=== PATIENT | male | born 1990 | race Caucasian/White ===

== ENCOUNTER 2016-12-02 00:43 | Emergency (ER) | payer SELFPAY ==
[2016-12-02 00:52] VITALS: BP 146/75; PULSE 87; TEMP 97.4; BMI 33.2
[2016-12-02] MEDS ORDERED: IBUPROFEN 400 MG TABLET (FP) PO ONE ×2 (01:28→01:48)
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
== END 2016-12-02 02:27 | disposition home or self-care (01) ==
LOC: JER 00:43
DX: S83.92XA Sprain of unspecified site of left knee, initial encounter (principal); W18.39XA Other fall on same level, initial encounter; Y93.89 Activity, other specified; Y92.410 Unspecified street and highway as the place of occurrence of the external cause
CPT/HCPCS: 73562-TC-LT; 99283-25

== ENCOUNTER 2017-10-27 22:26 | Emergency (ER) | payer SELFPAY ==
[2017-10-27 23:09] VITALS: BP 132/72; PULSE 61; TEMP 97.9; BMI 24.3
[2017-10-28] MEDS ORDERED: IBUPROFEN 400 MG TABLET (FP) PO ONE ×2 (01:13→02:17)
--- NOTE | 2017-10-28 01:21 | PDOC ---
History of Present Illness - General Chief Complaint: Pain Stated Complaint: PAIN Time Seen by Provider: 10/28/17 00:55 History Source: Patient Exam Limitations: No Limitations - History of Present Illness Initial Comments: 10/28/17 01:13 Patient is a 27M with no significant medical history here today complaining of pain in the lateral/inferior part of the left side of his chest. The pain started a week ago after he fell and hit h is chest with his elbow. Patient states that he slipped and fell on some ice. Denies LOC, headache, head trauma. The patient states that he's coming today because his pain has gotten worse. Denies fevers, chills, nausea, vomiting, abdominal pain, cough. His pain is worse with inspiration. He states that his pain is better with palpation. Denies family history of heart problems. Denies palpitations. Denies leg swelling, history of blood clots. Patient reports taking 1 aleve today for pain. Past History - Past Medical History Allergies/Adverse Reactions: Allergies Allergy/AdvReac Type Severity Reaction Status Date / Time No Known Allergies Allergy Verified 12/02/16 00:51 Home Medications: Ambulatory Orders NK [No Known Home Medication] 11/12/15 - Reproductive History Testicular Surgery: No Testicular Torsion: No - Immunization History Immunization Up to Date: Yes - Suicide/Smoking/Psychosocial Hx Smoking History: Never smoked Have you smoked in the past 12 months: No Information on smoking cessation initiated: No Hx Alcohol Use: No Drug/Substance Use Hx: No Substance Use Type: None Hx Substance Use Treatment: No Review of Systems - Review of Systems Comments:: 10/28/17 01:17 GENERAL/CONSTITUTIONAL: No fever or chills. No weakness. HEAD, EYES, EARS, NOSE AND THROAT: No change in vision. No sore throat. CARDIOVASCULAR: Positive for chest pain. Negative for shortness of breath RESPIRATORY: No cough, wheezing, or hemoptysis. GASTROINTESTINAL: No nausea, vomiting, diarrhea or constipation. MUSCULOSKELETAL: No joint or muscle swelling or pain. No neck or back pain. SKIN: No rash NEUROLOGIC: No headache, vertigo, loss of consciousness, or change in strength/ sensation. HEMATOLOGIC/LYMPHATIC: No anemia, easy bleeding, or history of blood clots. ALLERGIC/IMMUNOLOGIC: No hives or skin allergy. *Physical Exam - Vital Signs Last Vital Signs Temp Pulse Resp BP Pulse Ox 97.9 F 61 20 132/72 96 10/27/17 23:06 10/27/17 23:06 10/27/17 23:06 10/27/17 23:06 10/27/17 23:06 - Physical Exam Comments: 10/28/17 01:22 GENERAL: Awake, alert, and fully oriented, in no acute distress CHEST: No bruising or rash. Tender to palpation along rib 8/9. HEAD: No signs of trauma, normocephalic, atraumatic EYES: PERRLA, EOMI, sclera anicteric, conjunctiva clear ENT: Auricles normal inspection, hearing grossly normal, nares patent, oropharynx clear without exudates. Moist mucosa LUNGS: No distress, speaks full sentences, clear to auscultation bilaterally HEART: Regular rate and rhythm, normal S1 and S2, no murmurs, rubs or gallops, peripheral pulses normal and equal bilaterally. EXTREMITIES: Normal inspection, Normal range of motion, no edema. No clubbing or cyanosis. NEUROLOGICAL: Cranial nerves II through XII grossly intact. Normal speech, normal gait, no focal sensorimotor deficits SKIN: Warm, Dry, normal turgor, no rashes or lesions noted. Medical Decision Making - Medical Decision Making 10/28/17 01:23 27M here today with chest pain after minor trauma. Vital signs normal and stable. Do not believe pain has cardiac or pulmonary etiology. Pain is due to minor trauma. Breathing easily. Will give ibuprofen for pain control, give instructions to take ibuprofen and reassure patient. *DC/Admit/Observation/Transfer Diagnosis at time of Disposition: Bruised ribs - Discharge Dispostion Disposition: HOME Condition at time of disposition: Good Admit: No - Referrals - Patient Instructions Additional Instructions: Please return if you have any new, worsening or concerning symptoms. Please follow up your primary care physician this week. Please take ibuprofen or aleve as directed on the bottle and rest to relieve your pain. - Post Discharge Activity
--- NOTE | 2017-10-28 01:28 | PDOC ---
Attending Attestation - Resident Resident Name: Norman Pepper - ED Attending Attestation I have performed the following: I have examined & evaluated the patient, The case was reviewed & discussed with the resident, I agree w/resident's findings & plan, Exceptions are as noted - Physicial Exam PE: GENERAL: Awake, alert, and fully oriented, in no acute distress HEAD: No signs of trauma EYES: PERRLA, EOMI, sclera anicteric, conjunctiva clear ENT: Auricles normal inspection, hearing grossly normal, nares patent, oropharynx clear without exudates. Moist mucosa NECK: Normal ROM, supple, no lymphadenopathy, JVD, or masses LUNGS: Breath sounds equal, clear to auscultation bilaterally. No wheezes, and no crackles. +Tenderness to L anterior lower rib margin. No ecchymosis or overlying skin changes. HEART: Regular rate and rhythm, normal S1 and S2, no murmurs, rubs or gallops ABDOMEN: Soft, nontender, normoactive bowel sounds. No guarding, no rebound. No masses EXTREMITIES: Normal range of motion, no edema. No clubbing or cyanosis. No cords, erythema, or tenderness NEUROLOGICAL: Cranial nerves II through XII grossly intact. Normal speech, normal gait SKIN: Warm, Dry, normal turgor, no rashes or lesions noted. - Medical Decision Making Pt likely with bruised ribs s/p slip and fall. He is able to take a deep breath and has clear lung sounds, therefore ptx unlikely. Will career development counselor him to take NSAIDs for pain control to prevent pna. Stable for DC home. <Mera Wilson - Last Filed: 10/28/17 01:26> - HPI HPI: 10/28/17 01:44 Pt is a 27 yo M with no PMHx who presents to the ED with traumatic chest pain today. One week ago, patient fell and hit his elbow on his L lateral chest. Patient experienced chest pain today and took Ibuprofen with no relief. Patient states pain is exacerbated upon deep inspiration and reports to the ED for further evaluation. - Medical Decision Making 10/28/17 02:01 Documentation prepared by Renate Bennett, acting as medical center manager for Mera Wilson MD <Renate Bennett - Last Filed: 10/28/17 02:01>
== END 2017-10-28 02:22 | disposition home or self-care (01) ==
LOC: JER 22:26
DX: S20.212A Contusion of left front wall of thorax, initial encounter (principal); W00.2XXA Other fall from one level to another due to ice and snow, initial encounter; Y93.89 Activity, other specified; Y92.89 Other specified places as the place of occurrence of the external cause; Y99.8 Other external cause status
CPT/HCPCS: 99281-25

== ENCOUNTER 2017-12-02 12:56 | Emergency (ER) | payer SELFPAY ==
[2017-12-02 13:12] VITALS: BP 146/72; PULSE 64; TEMP 98.1; BMI 31.5
--- NOTE | 2017-12-02 13:42 | PDOC ---
History of Present Illness - General Chief Complaint: Abscess Boil Stated Complaint: ABSCESS BOIL Time Seen by Provider: 12/02/17 13:15 History Source: Patient, Old Records Exam Limitations: No Limitations - History of Present Illness Initial Comments: 12/02/17 13:37 This is a 27-year-old male with history of perirectal abscess who presents to the emergency department with 2 days of growth in his right buttock. Patient states he has his inspect his buttocks and anus regularly for new growths and she noticed to growths on 11/30. Patient denies any pain to these areas. Patient states when he wipes after moving his bowels he is free of pain and denies any bleeding. Patient has had no difficulty moving his bowels and has not needed to strain. He denies any fevers, chills, abdominal pain, nausea, vomiting, diarrhea, dysuria, hematuria, rectal bleeding. Past History - Past Medical History Allergies/Adverse Reactions: Allergies Allergy/AdvReac Type Severity Reaction Status Date / Time No Known Allergies Allergy Verified 12/02/17 13:09 Home Medications: Ambulatory Orders Cephalexin Monohydrate [Keflex -] 500 mg PO Q6H #40 capsule 12/02/17 COPD: No - Reproductive History Testicular Surgery: No Testicular Torsion: No - Immunization History Immunization Up to Date: Yes - Suicide/Smoking/Psychosocial Hx Smoking History: Never smoked Have you smoked in the past 12 months: No Number of Cigarettes Smoked Daily: 3 Information on smoking cessation initiated: No Hx Alcohol Use: Yes Drug/Substance Use Hx: No Substance Use Type: None Hx Substance Use Treatment: No Review of Systems - Review of Systems Able to Perform ROS?: Yes Is the patient limited Senegalese proficient: No Constitutional: No: Symptoms Reported HEENTM: No: Symptoms Reported Respiratory: No: Symptoms reported Cardiac (ROS): No: Symptoms Reported ABD/GI: No: Symptoms Reported : No: Symptoms Reported Musculoskeletal: No: Symptoms Reported Integumentary: Yes: See HPI Neurological: No: Symptoms reported Endocrine: No: Symptoms Reported *Physical Exam - Vital Signs Last Vital Signs Temp Pulse Resp BP Pulse Ox 98.1 F 64 18 146/72 98 12/02/17 13:09 12/02/17 13:09 12/02/17 13:09 12/02/17 13:09 12/02/17 13:09 - Physical Exam General Appearance: Yes: Appropriately Dressed. No: Apparent Distress HEENT: positive: Normal ENT Inspection Neck: positive: Trachea midline, Supple Respiratory/Chest: positive: Lungs Clear, Normal Breath Sounds. negative: Respiratory Distress, Accessory Muscle Use Cardiovascular: positive: Regular Rhythm, Regular Rate. negative: Murmur Gastrointestinal/Abdominal: positive: Normal Bowel Sounds, Soft. negative: Tender Rectal Exam: positive: normal exam, NL Prostate, normal rectal tone, other (No palpable fluctuant area noted with in the rectum or in the perirectal area.). negative: hemorrhoids Musculoskeletal: positive: Normal Inspection. negative: CVA Tenderness Extremity: positive: Normal Inspection Integumentary: positive: Other (2- 1 cm circular lesions noted to medial aspect of right buttock. Circular lesions are nonfluctuant without erythema. There is no crepitus or subcutaneous emphysema palpated to surrounding tissue.) Neurologic: positive: Alert, Normal Response Medical Decision Making - Medical Decision Making 12/02/17 13:43 A/P: 27-year-old male with 2 lesions noted to the medial aspect of the right buttock 2-1 cm circular nonfluctuant lesions noted to right buttock. No erythema noted. Areas around lesions feel no crepitus or subcutaneous emphysema. Rectal examination reveals no medication to the perirectal area. No hemorrhoids are noted. Prostate within normal limits. Rectal tone is normal Previous cultures pansensitive without MRSA growth Given patient's history of previous perirectal buttock abscess, I will treat the patient with Keflex as an outpatient. Discharge patient home *DC/Admit/Observation/Transfer Diagnosis at time of Disposition: Skin lesion on examination - Discharge Dispostion Disposition: HOME Condition at time of disposition: Stable Admit: No - Prescriptions Prescriptions: Cephalexin Monohydrate [Keflex -] 500 mg PO Q6H #40 capsule - Referrals Referrals: Perry Weaver MD [Staff Physician] - - Patient Instructions Additional Instructions: Apply warm moist soaks to area as needed for pain. Take Keflex 500 mg 4 times a day for the next 10 days. You have been given a referral for Dr. Smith who evaluated you last time. Call him tomorrow for reevaluation of this issue. Return to emergency department for worsening pain, fevers, chills or rectal bleeding, drainage from the area or any other concerns - Post Discharge Activity
== END 2017-12-02 14:01 | disposition home or self-care (01) ==
LOC: JERFT 12:56
DX: L98.8 Other specified disorders of the skin and subcutaneous tissue (principal)
CPT/HCPCS: 99281-25